=== PATIENT | female | born 1970 | race Caucasian/White ===

== ENCOUNTER → 2017-03-22 | Outpatient (CLI) | payer OTHER ==
--- NOTE | 2017-03-22 14:38 | REPMRS ---
Patient History The patient states she had a clinical breast exam in 03/2017. No known family history of cancer. Taking hormonal contraceptives for 24 years. Digital Woman Screen Mammo: March 22, 2017 - Exam #: [id number] Bilateral CC and MLO view(s) were taken. Technologist: Sheryl Randall, Technologist Prior study comparison: January 06, 2016, digital woman screen mammo performed at [facility]. April 26, 2013, digital woman screen mammo performed at [facility] to [facility]. FINDINGS: The breast tissue is heterogeneously dense. This may lower the sensitivity of mammography. There has been no change in the appearance of the mammogram from the prior studies. There is a moderate amount of residual fibroglandular tissue which is fairly symmetric. There is no interval development of dominant mass, areas of architectural distortion, or clustered microcalcification typical of malignancy. ASSESSMENT: BI-RADS/ACR category 1 mammogram. Negative. Recommendation Routine screening mammogram in 1 year (for women over age 40). This mammogram was interpreted with the aid of an FDA-approved computer-aided dectection system. Electronically Signed By: Maynor Cordova MD 03/22/17 [id number]
== END ==
LOC: M WHC 13:23
PROVIDERS: ATTEND Nurse Practitioner Family
DX: Z12.31 Encounter for screening mammogram for malignant neoplasm of breast (principal)

== ENCOUNTER → 2017-03-22 | Outpatient (REF) | payer OTHER | LOC: M SFHCWAGY 13:58 | PROVIDERS: ATTEND Nurse Practitioner Family | DX: Z12.4 Encounter for screening for malignant neoplasm of cervix (principal) ==

== ENCOUNTER → 2018-04-20 | Outpatient (CLI) | payer OTHER ==
--- NOTE | 2018-04-20 16:18 | REPMRS ---
Patient History The patient states she had a clinical breast exam in 04/2018. No known family history of cancer. Taking hormonal contraceptives for 25 years. Digital Woman Screen Mammo: April 20, 2018 - Exam #: [id number] Bilateral CC and MLO view(s) were taken. Technologist: Sheryl Randall, Technologist Prior study comparison: March 22, 2017, digital woman screen mammo performed at [facility] to [facility]. January 06, 2016, digital woman screen mammo performed at [facility]. April 26, 2013, digital woman screen mammo performed at [facility] to [facility]. FINDINGS: The breast tissue is heterogeneously dense. This may lower the sensitivity of mammography. There is a moderate amount of heterogeneously dense fibroglandular tissue which is fairly symmetric. There is no interval development of dominant mass, architectural distortion, or clustered microcalcification typical of malignancy. There has been no change in the appearance of the mammogram from the prior studies. 3-D tomosynthesis shows no additional findings. Assessment: BI-RADS/ACR category 1 mammogram. Negative. Recommendation Routine screening mammogram of both breasts in 1 year (for women over age 40). This patient's Lifetime Breast Cancer RIsk is estimated at 13.5 %. This mammogram was interpreted with the aid of an FDA-approved computer-aided dectection system. Electronically Signed By: Dex Whiting MD 04/20/18 [id number]
== END ==
LOC: M WHC 14:33
PROVIDERS: ATTEND Nurse Practitioner Family
DX: Z12.31 Encounter for screening mammogram for malignant neoplasm of breast (principal); Z92.0 Personal history of contraception

== ENCOUNTER → 2019-09-10 | Outpatient (CLI) | payer OTHER ==
--- NOTE | 2019-09-10 15:33 | REPMRS ---
Patient History The patient states she had a clinical breast exam in September 2019. Family history of esopageal cancer at age 60 in father. Taking hormonal contraceptives for 25 years. 3D TOMOSYNTHESIS WAS PERFORMED. The [facility] lifetime risk for breast cancer is 13.4%. VOLPARA DENSITY B. Digital Woman Screen Mammo: September 10, 2019 - Exam #: [id number] Bilateral CC and MLO view(s) were taken. Technologist: Shireen Blake, Technologist Prior study comparison: April 20, 2018, bilateral digital woman screen mammo performed at [facility]. March 22, 2017, digital woman screen mammo performed at [facility]. FINDINGS: The breast tissue is heterogeneously dense. This may lower the sensitivity of mammography. There has been no change in the appearance of the mammogram from the prior studies. There is a moderate amount of residual fibroglandular tissue which is fairly symmetric. There is no interval development of dominant mass, areas of architectural distortion, or clustered microcalcification typical of malignancy. Assessment: BI-RADS/ACR category 1 mammogram. Negative Mammogram. Recommendation Routine screening mammogram in 1 year (for women over age 40). This mammogram was interpreted with the aid of an FDA-approved computer-aided dectection system. Electronically Signed By: Maynor Cordova MD 09/10/19 [id number]
== END ==
LOC: M WHC 13:29
PROVIDERS: ATTEND Nurse Practitioner Family
DX: Z12.31 Encounter for screening mammogram for malignant neoplasm of breast (principal); Z80.0 Family history of malignant neoplasm of digestive organs; Z92.0 Personal history of contraception

== ENCOUNTER → 2019-09-10 | Outpatient (REF) | payer OTHER | LOC: M SFHCWAGY 08:13 | PROVIDERS: ATTEND Nurse Practitioner Family | DX: Z12.4 Encounter for screening for malignant neoplasm of cervix (principal) ==

== ENCOUNTER → 2020-11-19 | Outpatient (CLI) | payer OTHER ==
--- NOTE | 2020-11-19 10:48 | REPMRS ---
Patient History The patient states she had a clinical breast exam in November 2020. Family history of unknown cancer at age 60 in father. Taking hormonal contraceptives for 26 years. Patient states no breast complaints today. Patient has signed MRS History Sheet. Digital Woman Screen Mammo: November 19, 2020 - Exam #: [id number] Bilateral CC and MLO view(s) were taken. Technologist: Barbara Silvestre, Technologist Prior study comparison: September 10, 2019, bilateral digital woman screen mammo performed at [facility]. April 20, 2018, bilateral digital woman screen mammo performed at [facility]. March 22, 2017, digital woman screen mammo performed at [facility]. FINDINGS: There are scattered fibroglandular densities. The Volpara volumetric breast density category is: B. There is a moderate amount of residual fibroglandular tissue which is fairly symmetric. There is no interval development of dominant mass, architectural distortion, or grouped microcalcification typical of malignancy. There has been no change in the appearance of the mammogram from the prior studies. 3-D tomosynthesis shows no additional findings. Assessment: BI-RADS/ACR category 1 mammogram. Negative Mammogram. Recommendation Routine screening mammogram of both breasts in 1 year (for women over age 40). This patient's [facility] Lifetime Breast Cancer RIsk is estimated at 13.0 %. This mammogram was interpreted with the aid of an FDA-approved computer-aided dectection system. Electronically Signed By: Dex Whiting MD 11/19/20 [id number]
== END ==
LOC: M WHC 09:11
PROVIDERS: ATTEND Nurse Practitioner Women's Health
DX: Z12.31 Encounter for screening mammogram for malignant neoplasm of breast (principal); Z80.9 Family history of malignant neoplasm, unspecified

== ENCOUNTER → 2021-11-23 | Outpatient (CLI) | payer OTHER | LOC: M WHC 12:58 | PROVIDERS: ATTEND Internal Medicine | DX: Z12.31 Encounter for screening mammogram for malignant neoplasm of breast (principal) ==

== ENCOUNTER → 2023-04-06 | Outpatient (CLI) | payer OTHER | LOC: M WHC 14:03 | PROVIDERS: ATTEND Nurse Practitioner Family | DX: Z12.31 Encounter for screening mammogram for malignant neoplasm of breast (principal) ==

== ENCOUNTER → 2024-04-09 | Outpatient (CLI) | payer OTHER | LOC: M WHC 16:38 | PROVIDERS: ATTEND Internal Medicine | DX: Z12.31 Encounter for screening mammogram for malignant neoplasm of breast (principal); R92.333 Mammographic heterogeneous density, bilateral breasts ==